=== PATIENT | male | born 1935 | race Caucasian/White ===

== ENCOUNTER 2017-11-01 09:43 | Emergency (ER) | payer OTHER ==
[~2017-11-01] VITALS: Ht 182.9 cm; Wt 77.1 kg
[~2017-11-01 09:43] MED LIST: ANTIVERT25 MG PO; ASPIR 8181 MG PO; ASPIRIN325 PO; BETIMOL15 ML OPHTHALMIC; CENTRUM SILVER1 EAC4 PO; COMBIGAN EYE DR10 ML OPHTHALMIC; ELIQUIS2.5 MG PO; FLECAINIDE ACET50 M1 PO; FLEXERIL PO; HYDROCODON-ACE1 EAC7 PO; HYDROCODONE-AP1 EAC6; HYZAAR 100-251 EACH PO; LIPITOR10 MG PO; LOPRESSOR25 PO; LUMIGAN2.5 M1 OPHTHALMIC; NORCO 5-325 TA1 EACH PO; OCUVITE TABLET1 EAC1 PO; [UNRECOGNIZED DRUG - OTHER] PO; [UNRECOGNIZED DRUG - OTHER] PO
[2017-11-01 09:51] VITALS: BP 137/71
[2017-11-01] MEDS ORDERED: TRIAMCINOLONE A80 G2 TOP (10:11)
[2017-11-01] MEDS ORDERED: TERBINAFINE HCL30 GM TP (10:14)
== END 2017-11-01 10:20 | disposition home or self-care (01) ==
LOC: M.ERS 09:43
DX: R21 Rash and other nonspecific skin eruption (principal); M19.90 Unspecified osteoarthritis, unspecified site; I12.9 Hypertensive chronic kidney disease with stage 1 through stage 4 chronic kidney disease, or unspecified chronic kidney disease; N18.3 Chronic kidney disease, stage 3 (moderate); I48.91 Unspecified atrial fibrillation; I21.9 Acute myocardial infarction, unspecified; Z88.8 Allergy status to other drugs, medicaments and biological substances

== ENCOUNTER → 2018-04-20 | Outpatient (CLI) | payer OTHER ==
[~2018-04-20] MED LIST changes: +TERBINAFINE HCL30 GM TP; +TRIAMCINOLONE A80 G2 TOP
[2018-04-20 17:08] LABS: CREATININE 1.8 mg/dL (0.6-1.3); POTASSIUM 4.1 mmol/L (3.5-5.1)
== END ==
LOC: M.LAB 16:38
PROVIDERS: Internal Medicine
DX: N18.3 Chronic kidney disease, stage 3 (moderate) (principal); I48.91 Unspecified atrial fibrillation

== ENCOUNTER → 2018-04-21 | Outpatient (CLI) | payer OTHER | LOC: M.ULTRA 10:17 | DX: N28.1 Cyst of kidney, acquired (principal) ==

== ENCOUNTER → 2018-08-07 | Outpatient (CLI) | payer OTHER ==
[2018-08-07 15:46] LABS: ABSOLUTE EOSINOPHILS 0.2 thou/uL (0.0-0.7); ABSOLUTE LYMPHOCYTES 1.4 thou/uL (0.8-5.3); ABSOLUTE MONOCYTES 0.5 thou/uL (0.0-1.2); ABSOLUTE NEUTROPHILS 3.3 thou/uL (1.6-8.1); BASOPHILS 0.9 %; EOSINOPHILS 4.4 %; HEMATOCRIT 37.1 % (42.0-52.0); HEMOGLOBIN 12.5 gm/dL (14.0-18.0); LYMPHOCYTES 25.7 %; MCH 30.5 pg (26.0-34.0); MCHC 33.6 g/dL (28.0-37.0); MCV 90.8 fL (80.0-100.0); MONOCYTES 9.1 %; MPV 7.5 fl. (7.2-11.1); NUCLEATED RBCS 0 /100WBC; PLATELET COUNT* 225 thou/uL (150-400); POLYS 59.9 %; RBC 4.09 mil/uL (4.50-6.00); RDW-CV 14.4 % (10.5-14.5); WBC 5.5 thou/uL (4.0-11.0)
[2018-08-07 15:59] LABS: CALCIUM 8.7 mg/dL (8.5-10.1); MAGNESIUM 1.8 mg/dL (1.8-2.4); PHOSPHORUS* 3.4 mg/dL (2.5-4.9); POTASSIUM 3.9 mmol/L (3.5-5.1)
[2018-08-07 17:13] LABS: URINE BILIRUBIN NEGATIVE (Negative); URINE BLOOD TRACE (Negative); URINE CLARITY CLEAR; URINE COLOR YELLOW; URINE GLUCOSE-RANDOM NEGATIVE (Negative); URINE KETONES NEGATIVE (Negative); URINE LEUKOCYTES-REFLEX NEGATIVE (Negative); URINE NITRITE-REFLEX NEGATIVE (Negative); URINE PROTEIN NEGATIVE (Negative); URINE SPECIFIC GRAVITY 1.025 (1.005-1.030); URINE UROBILINOGEN 0.2 E.U./dl (0.2-1.0)
[2018-08-07 23:09] LABS: eGFR IF AFRICAN AMERICAN 35 (>59)
[2018-08-08 14:11] LABS: PARATHYROID HORMONE 75 pg/mL (15-65)
== END ==
LOC: M.LAB 15:22
PROVIDERS: Internal Medicine
DX: I12.9 Hypertensive chronic kidney disease with stage 1 through stage 4 chronic kidney disease, or unspecified chronic kidney disease (principal); N18.3 Chronic kidney disease, stage 3 (moderate); M19.90 Unspecified osteoarthritis, unspecified site; I48.91 Unspecified atrial fibrillation; I21.9 Acute myocardial infarction, unspecified

== ENCOUNTER 2018-09-14 13:22 | Inpatient (IN) | payer MEDICARE ==
[~2018-09-14] VITALS: Ht 182.9 cm; Wt 82.0 kg
[2018-09-14 13:26] VITALS: BP 113/85
[2018-09-14] MEDS ORDERED: PRESERVISION A1 EAC2 PO (13:34)
[2018-09-14 14:02] LABS: ABSOLUTE BASOPHILS 0.1 thou/uL (0.0-0.2); ABSOLUTE EOSINOPHILS 0.4 thou/uL (0.0-0.7); ABSOLUTE LYMPHOCYTES 1.5 thou/uL (0.8-5.3); ABSOLUTE MONOCYTES 0.6 thou/uL (0.0-1.2); ABSOLUTE NEUTROPHILS 5.2 thou/uL (1.6-8.1); BASOPHILS 0.8 %; EOSINOPHILS 5.1 %; HEMATOCRIT 35.1 % (42.0-52.0); LYMPHOCYTES 18.7 %; MCH 30.9 pg (26.0-34.0); MCHC 34.1 g/dL (28.0-37.0); MCV 90.7 fL (80.0-100.0); MONOCYTES 8.2 %; MPV 7.5 fl. (7.2-11.1); NUCLEATED RBCS 0 /100WBC; PLATELET COUNT* 250 thou/uL (150-400); POLYS 67.2 %; RBC 3.87 mil/uL (4.50-6.00); WBC 7.8 thou/uL (4.0-11.0)
[2018-09-14 14:04] LABS: BE -0.9 mmol/L (-2 to +3); HCO3 23.4 mmol/L (22.0-26.0); PCO2 37.3 mmHg (35.0-45.0); PO2 82.1 mmHg (75.0-100.0); pH 7.415 (7.340-7.450)
[2018-09-14 14:08] LABS: INR 1.1; PROTIME 11.4 Seconds (9.20-11.50)
[2018-09-14 14:21] LABS: ALBUMIN 3.1 g/dL (3.4-5.0); CALCIUM 8.9 mg/dL (8.5-10.1); CREATININE 2.4 mg/dL (0.6-1.3); MAGNESIUM 1.8 mg/dL (1.8-2.4); POTASSIUM 3.7 mmol/L (3.5-5.1); TOTAL BILIRUBIN 0.5 mg/dL (<0.1-1.0); TOTAL PROTEIN 7.2 g/dL (6.4-8.2)
[2018-09-14 14:30] LABS: INFLUENZA A ANTIGEN None Detected (None Detect); INFLUENZA B ANTIGEN None Detected (None Detect)
[2018-09-14 16:32] VITALS: BP 97/44
--- NOTE | 2018-09-14 17:55 | NUR ---
PT TO UNIT AT APPROX 1700 FROM ER, DAUGHTER AT BEDSIDE. PT IS ALERT AND ORIENTED, SOME SLURRING FROM PREVIOUS CVA (DAUGHTER CONFIRMED THIS IS PT BASELINE SPEECH). TELE TRACKING NSR AND ALL VSS ON ROOM AIR. PT DENIES CP AND WORSENING SOA. EDUCATED ON SAFETY AND PLAN OF CARE. PLEASE SEE ASSESSMENT FOR ADDITIONAL INFORMATION. WILL CONTINUE TO MONITOR
[2018-09-14 20:00] VITALS: BP 95/47
[2018-09-15] VITALS (7 sets, daily range): BP systolic 89–168; BP diastolic 38–70
--- NOTE | 2018-09-15 06:12 | NUR ---
ASSUMED PT CARE AT 1930, PT IS A&OX4, PT IS TRACING NSR WITH A 1DAVB ON THE MONITOR, ON RA SATTING MID TO HIGH 90'S. PT DENIES ANY PAIN OR NEEDS ALTAGRACIA THIS TIME. PT SLEPT WELL MOST OF THE NIGHT. PT IS UP WITH PERSONAL WALKER TO THE BR. PT APPEARS TO HAVE WHAT LOOKS LIKE RINGWORM TO RIGHT HIP, THIS WILL BE PASSED ALONG TO DAY RN AND PHYSICIAN. BED IN LOW POSITION, CALL LIGHT IN REACH, BED ALARM ON, YELLOW ARM BAND AND SOCKS IN PLACE.
--- NOTE | 2018-09-15 10:49 | EKG ---
[place] [address] ELECTROCARDIOGRAM REPORT Name: MANUELA BOWEN Room: [address] ADM IN .R.#: [id number] Admission: 09/14/18 Attend Phys: Alma Bond Discharge: Date of : 34 Report #: [id number] THIS REPORT FOR: //name// [facility] ED Test Date: 2018-09-14 Test Time: 13:36:56 Pat Name: MANUELA BOWEN Department: Room: [facility] Gender: M Geochemist: : 1935 Requested By: Ethel Brooke Order Number: [id number] MD: Sriram Allen Measurements Intervals [place] Rate: 77 P: 72 SD: 231 QRS: -56 QRSD: 142 T: 86 QT: 409 QTc: 463 Interpretive Statements Sinus rhythm Prolonged SD interval Nonspecific IVCD with LAD Compared to ECG 01/10/2017 20:27:01 First degree AV block now present Intraventricular conduction delay more prominent Electronically Signed On 09-15-2018 10:49:02 GAUGER CHIEF DELIVERY by Sriram Allen [email or web address] <ELECTRONICALLY SIGNED> By: Sriram Allen MD, FAC 09/15/18 1049 1336 1336 Sriram Allen MD, [facility] /EPI
--- NOTE | 2018-09-15 11:54 | NUR ---
MET WITH PT AND DTR/GABI BINGHAM TO DISCUSS HOME SITUATION/DC PLANNING. PT LIVES WITH SON/JULIA. PT IS INDEPENDENT WITH ADLS, ABLE TO MAKE SIMPLE MEALS WHILE SON WORKS DURING THE DAY. PT USES WALKER. HAS HAD HH IN PAST AND BEEN TO SNF AT [facility]. PT DOESN'T ANTICIPATE ANY DC NEEDS AT THIS TIME. DTR DID VOICE CONCERNS ABOUT PT NOT GETTING HIS 'REGULAR' MEDICATIONS SINCE ADMIT. SERGIO KIM AWARE AND IS CONTACTING DR. PEREZ ASKED TO SEE CHARGE NURSE ALSO, SERGIO MCHUGHMARINE STRUCTURAL WELDER NURSE MADE AWARE
[2018-09-15 22:38] LABS: URINE BILIRUBIN NEGATIVE (Negative); URINE BLOOD NEGATIVE (Negative); URINE CLARITY CLEAR; URINE COLOR YELLOW; URINE GLUCOSE-RANDOM NEGATIVE (Negative); URINE KETONES NEGATIVE (Negative); URINE LEUKOCYTES-REFLEX NEGATIVE (Negative); URINE NITRITE-REFLEX NEGATIVE (Negative); URINE PROTEIN NEGATIVE (Negative); URINE SPECIFIC GRAVITY 1.015 (1.005-1.030); URINE UROBILINOGEN 0.2 E.U./dl (0.2-1.0)
[2018-09-16 04:30] VITALS: BP 123/57
--- NOTE | 2018-09-16 05:28 | NUR ---
ASSUMED PT CARE AT 1930, PT IS A&OX4, PT IS MELLO FOSS WITH A 1DAVB ON THE MONTIOR, ON RA SATTING MID TO HIGH 90'S PT IS UP WITH A WALKER TOT HE BR. PT APPEARS TO HAVE RING WORM TO RIGHT HIP. BED IN LOW POSITION, CALL LIGHT IN REACH, BED ALARM ON, YELLOW ARM BAND AND SOCKS IN PLACE. HOURLY ROUNDING COMPLETED FOR PT SAFETY.
[2018-09-16 08:00] VITALS: BP 142/61
[2018-09-16 12:00] VITALS: BP 129/68
[2018-09-16 16:00] VITALS: BP 103/51
--- NOTE | 2018-09-16 17:41 | NUR ---
PT UP IN ROOM WITH SB ASSIST AND WALKER. PT DENIES SOA. NSR ON MONITOR
[2018-09-16 20:30] VITALS: BP 146/93
[2018-09-17] VITALS: BP 107/40
[2018-09-17 04:00] VITALS: BP 120/63
--- NOTE | 2018-09-17 04:53 | NUR ---
PT CARE ASSUMED AT 1930. SAT MAINTAINED IN RA. CALL LIGHT WITHIN REACH AND BED IN LOW POSITION. DENIES SOB AND PAIN. SLEPT MOST OF THE NIGHT. ALERT AND ORIENTED X4. HOURLY ROUNDING DONE FOR PT SAFETY.
[2018-09-17 08:30] VITALS: BP 122/55
[2018-09-17] MEDS ORDERED: AUGMENTIN 875-1 EACH PO (11:46)
[2018-09-17 13:20] VITALS: BP 122/55
[2018-09-17] MEDS ORDERED: PREDNISONE 10 M10 MG PO ×2 (13:23→13:30)
--- NOTE | 2018-09-17 14:37 | NUR ---
ASSUMED PT CARE AT 0730, FULL ASSESMENT DONE CHARTED. PT A/O X4, DENIES PAIN, PT STATES "I FEEL BETTER TODAY", NO COUGH NOTED. PTS VSS, SB/PAC'S ON THE MONITOR. PT REPORTS BM LAST NIGHT, UP AD WILVER, USES CALL LIGHT APPROPRILATY, VOIDING PER URINAL. RECIEVED DISCHARGE ORDERS AND SCRIPTS, CALLED SON(JULIA) WITH UPDATE. PT DISCHARGED WITH BELONGINGS AND QUESTIONS ANSWERED AT APPROX 1415
== END 2018-09-17 14:04 | disposition home or self-care (01) | DRG 682 ==
LOC: M.ERS 13:22 → M.TBA-ER 15:49 → M.2W 15:49
PROVIDERS: Personal Emergency Response Attendant; ADMIT Internal Medicine
DX: N17.9 Acute kidney failure, unspecified (principal); J80 Acute respiratory distress syndrome; I10 Essential (primary) hypertension; I48.91 Unspecified atrial fibrillation; B35.4 Tinea corporis; N18.4 Chronic kidney disease, stage 4 (severe); M19.90 Unspecified osteoarthritis, unspecified site; I25.2 Old myocardial infarction; Z86.73 Personal history of transient ischemic attack (TIA), and cerebral infarction without residual deficits; Z94.89 Other transplanted organ and tissue status; Z88.8 Allergy status to other drugs, medicaments and biological substances; Z82.49 Family history of ischemic heart disease and other diseases of the circulatory system; Z23 Encounter for immunization; Z79.899 Other long term (current) drug therapy

== ENCOUNTER → 2018-12-09 | Outpatient (CLI) | payer MEDICARE, BC ==
[~2018-12-09] MED LIST changes: +AUGMENTIN 875-1 EACH PO; +PREDNISONE 10 M10 MG PO; +PRESERVISION A1 EAC2 PO
[2018-12-09 13:43] LABS: ABSOLUTE BASOPHILS 0.1 thou/uL (0.0-0.2); ABSOLUTE EOSINOPHILS 0.4 thou/uL (0.0-0.7); ABSOLUTE MONOCYTES 0.7 thou/uL (0.0-1.2); EOSINOPHILS 5.3 %; HEMATOCRIT 37.2 % (42.0-52.0); HEMOGLOBIN 12.5 gm/dL (14.0-18.0); MCH 30.3 pg (26.0-34.0); MCHC 33.6 g/dL (28.0-37.0); MCV 90.2 fL (80.0-100.0); MONOCYTES 9.5 %; MPV 7.6 fl. (7.2-11.1); NUCLEATED RBCS 0 /100WBC; PLATELET COUNT* 254 thou/uL (150-400); POLYS 42.2 %; RBC 4.12 mil/uL (4.50-6.00); RDW-CV 15.3 % (10.5-14.5); WBC 7.1 thou/uL (4.0-11.0)
[2018-12-09 13:46] LABS: URINE BILIRUBIN NEGATIVE (Negative); URINE BLOOD NEGATIVE (Negative); URINE CLARITY CLEAR; URINE COLOR YELLOW; URINE GLUCOSE-RANDOM NEGATIVE (Negative); URINE KETONES NEGATIVE (Negative); URINE LEUKOCYTES-REFLEX NEGATIVE (Negative); URINE NITRITE-REFLEX NEGATIVE (Negative); URINE PROTEIN NEGATIVE (Negative); URINE SPECIFIC GRAVITY 1.025 (1.005-1.030); URINE UROBILINOGEN 0.2 E.U./dl (0.2-1.0)
[2018-12-09 13:56] LABS: CALCIUM 9.7 mg/dL (8.5-10.1); CREATININE 2.1 mg/dL (0.6-1.3); MAGNESIUM 1.8 mg/dL (1.8-2.4); PHOSPHORUS* 4.2 mg/dL (2.5-4.9); POTASSIUM 3.6 mmol/L (3.5-5.1)
== END ==
LOC: M.LAB 13:08
PROVIDERS: Nurse Practitioner Family
DX: I12.9 Hypertensive chronic kidney disease with stage 1 through stage 4 chronic kidney disease, or unspecified chronic kidney disease (principal); N18.3 Chronic kidney disease, stage 3 (moderate); I48.91 Unspecified atrial fibrillation

== ENCOUNTER → 2019-05-21 | Outpatient (CLI) | payer MEDICARE, BC ==
[2019-05-21 14:32] LABS: HEMATOCRIT 39.3 % (42.0-52.0); HEMOGLOBIN 13.5 gm/dL (14.0-18.0)
[2019-05-21 14:51] LABS: ALBUMIN 3.8 g/dL (3.4-5.0); CALCIUM 8.8 mg/dL (8.5-10.1); PHOSPHORUS* 3.9 mg/dL (2.5-4.9); TOTAL BILIRUBIN 0.4 mg/dL (<0.1-1.0); TOTAL PROTEIN 7.4 g/dL (6.4-8.2)
[2019-05-21 15:01] LABS: CALCIUM 8.8 mg/dL (8.5-10.1); PHOSPHORUS* 4.1 mg/dL (2.5-4.9)
== END ==
LOC: M.LAB 14:07
PROVIDERS: Internal Medicine
DX: N18.3 Chronic kidney disease, stage 3 (moderate) (principal)

== ENCOUNTER 2019-08-16 14:01 | Inpatient (IN) | payer MEDICARE, BC ==
[~2019-08-16] VITALS: Ht 182.9 cm; Wt 82.6 kg
--- NOTE | ~2019-08-16 | PROC ---
[address] [address] PROCEDURE REPORT Name: MANUELA BOWEN Room: [address] IN M.R.#: [id number] Admission: 08/16/19 Attend Phys: Jennifer bailey Bailey Discharge: 08/23/19 Date of : 34 Report #: [id number] THIS REPORT FOR: //name// For GI report, please see the Provation report in Perceptive 7 content. By: 0656Medical Records Staff EDSON /ELOISA
[2019-08-16 14:12] VITALS: BP 110/52
[2019-08-16 15:03] LABS: ABSOLUTE LYMPHOCYTES 1.1 thou/uL (0.8-5.3); ABSOLUTE MONOCYTES 0.6 thou/uL (0.0-1.2); ABSOLUTE NEUTROPHILS 7.4 thou/uL (1.6-8.1); BASOPHILS 0.3 %; EOSINOPHILS 0.5 %; HEMATOCRIT 41.6 % (42.0-52.0); HEMOGLOBIN 14.1 gm/dL (14.0-18.0); LYMPHOCYTES 12.1 %; MCH 30.4 pg (26.0-34.0); MCHC 33.9 g/dL (28.0-37.0); MCV 89.7 fL (80.0-100.0); MONOCYTES 6.7 %; MPV 7.5 fl. (7.2-11.1); NUCLEATED RBCS 0 /100WBC; PLATELET COUNT* 318 thou/uL (150-400); POLYS 80.4 %; RBC 4.64 mil/uL (4.50-6.00); RDW-CV 14.4 % (10.5-14.5); WBC 9.2 thou/uL (4.0-11.0)
[2019-08-16 15:19] LABS: INR 1.1
[2019-08-16 15:20] LABS: CALCIUM 9.5 mg/dL (8.5-10.1); CREATININE 3.1 mg/dL (0.6-1.3); POTASSIUM 4.3 mmol/L (3.5-5.1)
[2019-08-16 15:31] LABS: ALBUMIN 3.8 g/dL (3.4-5.0); TOTAL BILIRUBIN 0.5 mg/dL (<0.1-1.0)
[2019-08-16 19:46] VITALS: BP 95/83
[2019-08-16 20:00] VITALS: BP 98/42
[2019-08-16 22:30] VITALS: BP 112/50
[2019-08-17] VITALS (8 sets, daily range): BP systolic 90–118; BP diastolic 52–74
[2019-08-17 00:01] LABS: URINE BILIRUBIN NEGATIVE (Negative); URINE BLOOD NEGATIVE (Negative); URINE CLARITY CLEAR; URINE COLOR YELLOW; URINE GLUCOSE-RANDOM NEGATIVE (Negative); URINE KETONES NEGATIVE (Negative); URINE LEUKOCYTES-REFLEX NEGATIVE (Negative); URINE PROTEIN NEGATIVE (Negative); URINE SPECIFIC GRAVITY 1.015 (1.005-1.030); URINE UROBILINOGEN 0.2 E.U./dl (0.2-1.0)
[2019-08-17 00:06] LABS: URINE NITRITE-REFLEX POSITIVE (Negative)
[2019-08-17 00:19] LABS: BACTERIA-REFLEX 1-9 Few /HPF (None Seen); CRYSTALS None Seen /LPF (None Seen); HYALINE CASTS 0-3 Few /LPF (None Seen); MUCUS 4-6 Moderate strn/LPF (None Seen); SQUAMOUS 0-3 Few /LPF (0-3); URINE RBC 3-10 Few /HPF (0-2); URINE WBC-REFLEX None Seen /HPF (0-5)
[2019-08-17 05:06] LABS: HEMATOCRIT 32.6 % (42.0-52.0); MCH 30.2 pg (26.0-34.0); MCHC 33.7 g/dL (28.0-37.0); MCV 89.6 fL (80.0-100.0); MPV 7.4 fl. (7.2-11.1); RBC 3.64 mil/uL (4.50-6.00); RDW-CV 14.2 % (10.5-14.5); WBC 6.5 thou/uL (4.0-11.0)
[2019-08-17 05:15] LABS: CALCIUM 8.5 mg/dL (8.5-10.1); CREATININE 2.7 mg/dL (0.6-1.3); POTASSIUM 4.5 mmol/L (3.5-5.1)
--- NOTE | 2019-08-17 06:27 | NUR ---
RECEIVED REPORT FROM FLOOR COVERINGS SALESPERSONSERGIO NO AT 1935. PT ARRIVED TO UNIT VIA BED AT 1954. PT ALERT AND ORIENTED TO ROOM AND CALL LIGHT. SUPERVISOR METAL CANS IN PLACE, TRACING AFIB. PT DENIES PAIN AND VOICES NO CONCERNS THIS SHIFT. HIGH FALL PRECAUTIONS IN PLACE, CALL LIGHT WITHIN REACH.
--- NOTE | 2019-08-17 10:23 | EKG ---
[place] [address] ELECTROCARDIOGRAM REPORT Name: MANUELA BOWEN Room: [address] ADM IN M.R.#: [id number] Admission: 08/16/19 Attend Phys: Jennifer Landon Discharge: Date of : 34 Report #: [id number] THIS REPORT FOR: //name// [facility] ED Test Date: 2019-08-16 Test Time: 14:20:09 Pat Name: MANUELA BOWEN Department: Room: [facility] Gender: M Compliance Examiner: LUGO : 1935 Requested By: Bert Garza Order Number: [id number] MD: Gopal Bishop Measurements Intervals [place] Rate: 94 P: RI: QRS: -64 QRSD: 135 T: 78 QT: 390 QTc: 488 Interpretive Statements Atrial tachycardia left axis Left bundle branch block Compared to ECG 09/14/2018 13:36:56 Sinus rhythm no longer present Electronically Signed On 08-17-2019 10:23:00 GAMMA RAY OPERATOR by Gopal Bishop [email or web address] <ELECTRONICALLY SIGNED> By: Gopal Bishop MD, [facility] 08/17/19 1023 1420 1420 Gopal Bishop MD, [facility] /EPI
--- NOTE | 2019-08-17 12:35 | 2DMMODE ---
[place] [address] 2 D/M-MODE ECHOCARDIOGRAM Name: MANUELA BOWEN Room: [address] IN [facility]#: [id number] Admission: 08/16/19 Attend Phys: Jennifer bailey Sa Discharge: Date of : 34 Date of Service: 08/17/19 1235 Report #: [id number] THIS REPORT FOR: //name// APPROVED REPORT Study performed: 08/17/2019 09:59:38 EXAM: Comprehensive 2D, Doppler, and color-flow Echocardiogram Patient Location: In-Patient Room #: [facility] Status: routine BSA: 2.01 HR: 81 bpm BP: 98/74 mmHg Rhythm: Atrial Fibrillation Other Information Study Quality: Good Indications Atrial Fibrillation Dyspnea 2D Dimensions IVSd: 10.83 (7-11mm) LVOT Diam: 20.99 (18-24mm) LVDd: 39.74 mm PWd: 10.41 (7-11mm) Ascending Ao: 35.44 (22-36mm) LVDs: 29.36 (25-40mm) Aortic Root: 35.33 mm Volumes Left Atrial Volume (Systole) LA ESV Index: 33.10 mL/m2 Aortic Valve AoV Peak Hugo.: 1.20 m/s AO Peak Gr.: 5.80 mmHg LVOT Max P.54 mmHg AO Mean Gr.: 3.26 mmHg LVOT Mean P.86 mmHg LVOT Max V: 1.18 m/s AO V2 VTI: 18.33 cm LVOT Mean V: 0.78 m/s BELKIS (VTI): 3.49 cm2 LVOT V1 VTI: 18.47 cm AI Henderson: 1.15 m/s2 AI PHT: 818.45 [place] [address] 2 D/M-MODE ECHOCARDIOGRAM Name: MANUELA BOWEN Room: [address] IN ..#: [id number] Admission: 08/16/19 Attend Phys: Jennifer bailey Sa Discharge: Date of : 34 Date of Service: 08/17/19 1235 Report #: [id number] MV Decel. Time: 141.68 ms MV PHT: 41.09 ms MVA (PHT): 5.35 cm2 TDI Medial E' Hugo.: 0.11 m/s Lateral E' Hugo.: 0.13 m/s Pulmonary Valve PV Peak Hugo.: 1.05 m/s PV Peak Gr.: 4.39 mmHg Tricuspid Valve RAP Estimate: 5.00 mmHg TR Peak Gr.: 25.11 mmHg RVSP: 30.00 mmHg PA Pressure: 30.00 mmHg Left Ventricle The left ventricle is normal size. There is normal LV segmental wall motion. There is normal left ventricular wall thickness. Left ventricular systolic function is normal. The left ventricular ejection fraction is within the normal range. LVEF is 55-60%. This study is not technically sufficient to allow evaluation of the LV diastolic function. Right Ventricle The right ventricle is normal size. The right ventricular systolic function is normal. Atria Left atrium is mildly dilated. The right atrium size is normal. Aortic Valve The aortic valve is normal in structure. Trace aortic regurgitation. There is no aortic valvular stenosis. Mitral Valve The mitral valve is normal in structure. Trace mitral regurgitation. No evidence of mitral valve stenosis. Tricuspid Valve The tricuspid valve is normal in structure. Mild tricuspid regurgitation. estimated pa pressure 35 mm Hg Pulmonic Valve The pulmonary valve is normal in structure. [place] [address] 2 D/M-MODE ECHOCARDIOGRAM Name: BOWENMANUELA EPI Room: [address] IN [facility]#: [id number] Admission: 08/16/19 Attend Phys: Jennifer bailey Sa Discharge: Date of : 34 Date of Service: 08/17/19 1235 Report #: [id number] valvular regurgitation. Great Vessels The aortic root is normal in size. IVC is normal in size and collapses >50% with inspiration. Pericardium There is no pericardial effusion. <Conclusion> LVEF is 55-60%. Left atrium is mildly dilated. <ELECTRONICALLY SIGNED> By: Gopal Bishop MD, FACC 08/17/19 1235 1235 1235 Gopal Bishop MD, FACC /INF
--- NOTE | 2019-08-17 14:48 | NUR ---
ISOLATION CAN BE DISCONTINUED PER JOSAFAT I/D RN.
--- NOTE | 2019-08-17 15:27 | NUR ---
Pt is A&O. Resides at home with his son. Independent. Pt has a walker and cane that she can use for mobility. Hx of . Hx of SNF at [facility]. Goal is home at in, no needs anticipated.
[2019-08-18] VITALS: BP 108/88
[2019-08-18 04:00] VITALS: BP 131/69
[2019-08-18 08:00] VITALS: BP 120/91
[2019-08-18 10:30] LABS: ABSOLUTE BASOPHILS 0.1 thou/uL (0.0-0.2); ABSOLUTE EOSINOPHILS 0.3 thou/uL (0.0-0.7); ABSOLUTE LYMPHOCYTES 1.9 thou/uL (0.8-5.3); ABSOLUTE MONOCYTES 0.5 thou/uL (0.0-1.2); ABSOLUTE NEUTROPHILS 3.5 thou/uL (1.6-8.1); BASOPHILS 0.9 %; EOSINOPHILS 4.1 %; HEMATOCRIT 36.4 % (42.0-52.0); HEMOGLOBIN 12.2 gm/dL (14.0-18.0); LYMPHOCYTES 29.8 %; MCH 30.2 pg (26.0-34.0); MCHC 33.5 g/dL (28.0-37.0); MONOCYTES 8.3 %; MPV 7.5 fl. (7.2-11.1); NUCLEATED RBCS 0 /100WBC; PLATELET COUNT* 282 thou/uL (150-400); POLYS 56.9 %; RBC 4.04 mil/uL (4.50-6.00); RDW-CV 14.6 % (10.5-14.5); WBC 6.2 thou/uL (4.0-11.0)
[2019-08-18 10:44] LABS: ALBUMIN 3.3 g/dL (3.4-5.0); CALCIUM 8.9 mg/dL (8.5-10.1); CREATININE 2.1 mg/dL (0.6-1.3); POTASSIUM 3.5 mmol/L (3.5-5.1); TOTAL BILIRUBIN 0.4 mg/dL (<0.1-1.0); TOTAL PROTEIN 6.9 g/dL (6.4-8.2)
[2019-08-18 11:48] VITALS: BP 155/83
[2019-08-18 16:00] VITALS: BP 103/61
[2019-08-18 20:00] VITALS: BP 112/69
--- NOTE | 2019-08-18 23:39 | NUR ---
PT A+O X4. NO PAIN REPORTED OR OBSERVED. PT HAS EXPRESSIVE APHASIA @ TIMES WHEN TRYING TO TELL A STORY- BUT SPEECH IS CLEAR WHEN ASKING FOR SOMETHING OR ANSWERING QUESTIONS. CONSISTENT WITH SPEECH OBSERVED BY THIS RN LAST M[employer] PROJECT MANAGER. CALL LIGHT IN REACH. HOURLY ROUNDING FOR SAFETY.
[2019-08-19] VITALS: BP 107/63
[2019-08-19 04:00] VITALS: BP 100/75
[2019-08-19 08:00] VITALS: BP 113/71
[2019-08-19 09:32] LABS: ALBUMIN 2.8 g/dL (3.4-5.0); CALCIUM 8.2 mg/dL (8.5-10.1); CREATININE 1.7 mg/dL (0.6-1.3); POTASSIUM 3.2 mmol/L (3.5-5.1); TOTAL BILIRUBIN 0.3 mg/dL (<0.1-1.0); TOTAL PROTEIN 5.7 g/dL (6.4-8.2)
[2019-08-19 09:33] LABS: ABSOLUTE BASOPHILS 0.1 thou/uL (0.0-0.2); ABSOLUTE EOSINOPHILS 0.3 thou/uL (0.0-0.7); ABSOLUTE LYMPHOCYTES 1.8 thou/uL (0.8-5.3); ABSOLUTE NEUTROPHILS 5.1 thou/uL (1.6-8.1); BASOPHILS 0.6 %; EOSINOPHILS 3.2 %; LYMPHOCYTES 22.4 %; MCH 30.2 pg (26.0-34.0); MCHC 33.8 g/dL (28.0-37.0); MCV 89.3 fL (80.0-100.0); MPV 7.7 fl. (7.2-11.1); NUCLEATED RBCS 0 /100WBC; PLATELET COUNT* 237 thou/uL (150-400); POLYS 61.8 %; RBC 3.35 mil/uL (4.50-6.00); RDW-CV 13.9 % (10.5-14.5); WBC 8.2 thou/uL (4.0-11.0)
[2019-08-19 09:34] LABS: HEMOGLOBIN 10.1 gm/dL (14.0-18.0)
[2019-08-19 12:03] VITALS: BP 130/68
[2019-08-19 20:10] VITALS: BP 120/83
[2019-08-20] VITALS (7 sets, daily range): BP systolic 105–137; BP diastolic 51–75
--- NOTE | 2019-08-20 05:39 | NUR ---
PATIENT PREPRARED FOR COLONOSCOPY. NPO POST MIDNIGHT. BOWEL IS CLEAR. PATIENT DENIES PAIN AND DISCOMFORT. CALL LIGHT WITHIN REACH
[2019-08-20 09:46] LABS: ABSOLUTE BASOPHILS 0.1 thou/uL (0.0-0.2); ABSOLUTE EOSINOPHILS 0.2 thou/uL (0.0-0.7); ABSOLUTE LYMPHOCYTES 1.4 thou/uL (0.8-5.3); ABSOLUTE MONOCYTES 1.1 thou/uL (0.0-1.2); ABSOLUTE NEUTROPHILS 6.9 thou/uL (1.6-8.1); BASOPHILS 0.9 %; EOSINOPHILS 1.8 %; HEMATOCRIT 29.7 % (42.0-52.0); HEMOGLOBIN 10.2 gm/dL (14.0-18.0); LYMPHOCYTES 14.6 %; MCH 30.4 pg (26.0-34.0); MCHC 34.3 g/dL (28.0-37.0); MCV 88.7 fL (80.0-100.0); MPV 7.7 fl. (7.2-11.1); NUCLEATED RBCS 0 /100WBC; PLATELET COUNT* 247 thou/uL (150-400); POLYS 71.7 %; RBC 3.35 mil/uL (4.50-6.00); RDW-CV 14.2 % (10.5-14.5); WBC 9.6 thou/uL (4.0-11.0)
[2019-08-20 09:55] LABS: CALCIUM 8.4 mg/dL (8.5-10.1); CREATININE 1.6 mg/dL (0.6-1.3); TOTAL BILIRUBIN 0.3 mg/dL (<0.1-1.0); TOTAL PROTEIN 5.6 g/dL (6.4-8.2)
--- NOTE | 2019-08-20 11:15 | NUR ---
ASSUMED CARE OF PATIENT THIS AM AT 0730. PATIENT IS ALERT AND ORIENTED X 4. HE DENIES PAIN. PATIENT KEPT NPO FOR COLONOSCOPY. PATIENT TAKEN TO PACU FOR TEST PER W/C.
[2019-08-21] VITALS: BP 120/62
[2019-08-21 04:00] VITALS: BP 108/63
[2019-08-21 08:00] VITALS: BP 100/48
[2019-08-21 12:49] VITALS: BP 105/83
--- NOTE | 2019-08-21 13:41 | NUR ---
Spoke with , continue to follow. Pt will likely need HH at ma. Following.
[2019-08-21 16:00] VITALS: BP 148/62
[2019-08-21 18:00] LABS: URINE BILIRUBIN NEGATIVE (Negative); URINE BLOOD NEGATIVE (Negative); URINE CLARITY CLEAR; URINE COLOR YELLOW; URINE GLUCOSE-RANDOM NEGATIVE (Negative); URINE KETONES TRACE (Negative); URINE LEUKOCYTES-REFLEX NEGATIVE (Negative); URINE NITRITE-REFLEX NEGATIVE (Negative); URINE PROTEIN NEGATIVE (Negative); URINE SPECIFIC GRAVITY >= 1.030 (1.005-1.030); URINE UROBILINOGEN 0.2 E.U./dl (0.2-1.0)
--- NOTE | 2019-08-21 19:21 | NUR ---
PATINET RESTING IN BED UP WITH ASSIST X2 AND WALKER. HE IS CURRENTLY FEBRILE AND ORDERS WERE RECEIVED FOR TYLENOL TO CONTROL FEVER. HOURLY ROUNDING COMPLETED FOR PATINET SAFETY.
[2019-08-21 19:50] VITALS: BP 120/64
[2019-08-22] VITALS: BP 87/46
[2019-08-22 04:00] VITALS: BP 103/50; BP 142/93
[2019-08-22 04:35] LABS: ABSOLUTE BASOPHILS 0.1 thou/uL (0.0-0.2); ABSOLUTE EOSINOPHILS 0.1 thou/uL (0.0-0.7); ABSOLUTE LYMPHOCYTES 1.9 thou/uL (0.8-5.3); ABSOLUTE MONOCYTES 1.4 thou/uL (0.0-1.2); ABSOLUTE NEUTROPHILS 7.2 thou/uL (1.6-8.1); BASOPHILS 0.6 %; EOSINOPHILS 0.7 %; HEMATOCRIT 26.2 % (42.0-52.0); HEMOGLOBIN 9.4 gm/dL (14.0-18.0); LYMPHOCYTES 17.5 %; MCH 31.2 pg (26.0-34.0); MCHC 35.8 g/dL (28.0-37.0); MCV 87.2 fL (80.0-100.0); MONOCYTES 13.5 %; MPV 7.3 fl. (7.2-11.1); NUCLEATED RBCS 0 /100WBC; PLATELET COUNT* 211 thou/uL (150-400); POLYS 67.7 %; WBC 10.7 thou/uL (4.0-11.0)
[2019-08-22 04:39] LABS: CALCIUM 7.6 mg/dL (8.5-10.1); CREATININE 1.7 mg/dL (0.6-1.3); MAGNESIUM 1.5 mg/dL (1.8-2.4); POTASSIUM 3.1 mmol/L (3.5-5.1)
--- NOTE | 2019-08-22 06:39 | NUR ---
VSS. SEE MAR. SEE CHARTING. FALL PRECAUTIONS IN PLACE. HOURLY ROUNDING FOR SAFETY.
[2019-08-22 08:00] VITALS: BP 105/54
[2019-08-22 11:43] VITALS: BP 106/67
--- NOTE | 2019-08-22 14:15 | NUR ---
Spoke with Pt regarding skilled, d/t continued weakness, Pt in agreement and wants to go to [facility]. CM updated Mere at [facility], they will have a bed available on Tuesday. Faxed referral, awaiting decision to accept.
--- NOTE | 2019-08-22 15:07 | PATH ---
[facility] [address] [place] [address] PATHOLOGY RPT PROCEDURE Name: BOWENMARCUS EPI Room: [address] IN M.R.#: [id number] Admission: 08/16/19 Date of : 34 Discharge: Report #: [id number] Path Case #: [id number] [facility] Accession Number: [id number] . 01 Material submitted: . colon - RANDOM COLON BIOPSIES . 01 Clinical history: . None provided . 02 Diagnosis: Random colon biopsies: - Mild active colitis with suggestion of chronic inflammation, negative for granulomas, viral inclusions and dysplasia. See comment. . (SAMIA:christopher; 08/22/2019) S 08/22/2019 1117 Local . 02 Comment: The biopsies reveal benign colonic mucosa, most showing mild active inflammation with scattered cryptitis and a few neutrophils in the lamina propria and there is focal/minimal basal lymphoplasmacytosis with crypt disarray but no definite crypt distortion. The inflammation is subtle and could be attributed to oral sodium phosphate prep, use of non-steroidal anti-inflammatory agents or acute/self-limited or infectious colitis; however, the suggestion of chronic inflammation raises the question of inflammatory bowel disease as well. . ([facility]IA:[facility]; 08/22/2019) . 02 Electronically signed: . Zane Green MD, Pathologist NPI- [id number] . 01 Gross description: . Received in formalin labeled "Marcus Bowen, random colon biopsies," are multiple segments of liao-brown soft tissue measuring 1.0 x 0.9 x 0.2 cm in aggregate dimensions and ranging from 0.2 to 0.4 cm in maximum dimension. The specimen is submitted entirely in cassette A1. ([facility]; 08/21/2019) XDC/XAR 08/21/2019 0821 Local . 02 Pathologist provided ICD-10: K52.9 . 02 CPT . 992544 Specimen Comment: A courtesy copy of this report has been sent to [phone], [place] [address] PATHOLOGY RPT PROCEDURE Name: MARCUS BOWEN Room: [address] IN ..#: [id number] Admission: 08/16/19 Date of : 34 Discharge: Report #: [id number] Path Case #: [id number] Specimen Comment: [id number], Specimen Comment: Report sent to , and Dr.DE IGGY AVILEZ Performed at: [address], [place], [place] [id number] MD Reginald Bennett MD Phone: [phone] Performed at: [facility] [address], [place], [place] [id number] MD Zane Green MD Phone: [phone]
[2019-08-22 20:00] VITALS: BP 115/65
[2019-08-23] VITALS: BP 81/47
[2019-08-23 04:50] LABS: ABSOLUTE BASOPHILS 0.1 thou/uL (0.0-0.2); ABSOLUTE EOSINOPHILS 0.2 thou/uL (0.0-0.7); ABSOLUTE LYMPHOCYTES 1.6 thou/uL (0.8-5.3); ABSOLUTE NEUTROPHILS 6.6 thou/uL (1.6-8.1); BASOPHILS 0.5 %; EOSINOPHILS 1.7 %; HEMATOCRIT 24.9 % (42.0-52.0); HEMOGLOBIN 8.8 gm/dL (14.0-18.0); LYMPHOCYTES 16.8 %; MCH 30.5 pg (26.0-34.0); MCHC 35.2 g/dL (28.0-37.0); MCV 86.7 fL (80.0-100.0); MONOCYTES 10.4 %; MPV 7.8 fl. (7.2-11.1); NUCLEATED RBCS 0 /100WBC; PLATELET COUNT* 212 thou/uL (150-400); POLYS 70.6 %; RBC 2.87 mil/uL (4.50-6.00); RDW-CV 14.3 % (10.5-14.5); WBC 9.4 thou/uL (4.0-11.0)
[2019-08-23 05:05] LABS: CALCIUM 8.3 mg/dL (8.5-10.1); CREATININE 1.7 mg/dL (0.6-1.3); POTASSIUM 4.3 mmol/L (3.5-5.1)
--- NOTE | 2019-08-23 10:44 | NUR ---
Nutrition: Pt assessed for LOS. Admitted with hypotension. Going to [facility] tomorrow. H/o stroke, HTN. RX: cipro, MVI. Regular diet. alb 3, prealb 26.9. Wt: 182#. No nutritional concerns. Low risk.
[2019-08-23 12:35] LABS: ALBUMIN 2.3 g/dL (3.4-5.0); CALCIUM 8.4 mg/dL (8.5-10.1); CREATININE 1.7 mg/dL (0.6-1.3); POTASSIUM 4.5 mmol/L (3.5-5.1); TOTAL BILIRUBIN 0.3 mg/dL (<0.1-1.0); TOTAL PROTEIN 4.9 g/dL (6.4-8.2)
[2019-08-23] MEDS ORDERED: XALATAN2.5 ML OPHTHALMIC (12:47)
[2019-08-23] MEDS ORDERED: CIPRO500 M1 PO (12:48)
[2019-08-23] MEDS ORDERED: FLAGYL500 M1 PO (12:49)
[2019-08-23] MEDS ORDERED: TYLENOL325 MG PO (12:50)
[2019-08-23] MEDS ORDERED: METRONIDAZOLE500 M4 PO (12:53)
--- NOTE | 2019-08-23 13:25 | NUR ---
Pt is discharging to [facility] today. Facility to picker and sorter load and unload and transport at 330pm. Faxed dc orders. Chart copied. Nurse report number is [id number]. Updated Pt's son of dispo.
[2019-08-23 13:46] VITALS: BP 110/67
--- NOTE | 2019-08-23 14:27 | CON ---
[address] [address] CONSULTATION Name: ANDRÉSMANUELA EPI Room: [address] ADM IN M.R.#: [id number] Admission: 08/16/19 Attend Phys: Jennifer Landon Discharge: Date of : 34 Report #: [id number] THIS REPORT FOR: //name// CC: Alex López DATE OF SERVICE: 08/18/2019 REQUESTING PHYSICIAN: Jennifer López MD REASON FOR CONSULT: Persistent diarrhea and abdominal pain. HISTORY OF PRESENT ILLNESS: This is an 83-year-old male, with history of AFib, who was seen by his PCP in the office and was told to go to hospital ass the patient almost had a near syncope episode. The patient reports that he has had diarrhea for the past 3 weeks, which has been persistent. This has been making him very dehydrated. He also has loose stools during the night and complains of excessive malodorous gas and significant bloating. Since hospitalization, the patient has had blood work, which did not show any leukocytosis. He also had C. diff stool assay, which was negative. He denies any hematochezia or melena. He also reports that since he has been hydrated. He has not had any dizziness or upper GI symptoms such as nausea and vomiting. PAST MEDICAL HISTORY: Significant for history of renal failure, AFib, Green's palsy, arthritis, hypertension, skin cancer, tonsillectomy, coronary artery disease status post [place], strokes, seizure and right eye transplant. 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 MEDICATIONS: Please refer to MAR. SOCIAL HISTORY: The patient denies tobacco or alcohol use. FAMILY HISTORY: Significant for coronary artery disease. PHYSICAL EXAMINATION: VITAL SIGNS: Reveals normal vitals. LUNGS: Clear to auscultation bilaterally. CARDIOVASCULAR: Regular rate. ABDOMEN: Soft, nontender, nondistended. Bowel sounds are positive. NEUROLOGIC: The patient is mildly hard of hearing, but otherwise alert and oriented x 3. LABORATORY DATA: Labs revealed sodium of 141, potassium 3.5, BUN is 24, creatinine 2.1. Lipase is 234. Bilirubin is 0.4, albumin is 3.3. WBC is 6.2 [place] [address] CONSULTATION Name: MANUELA BOWEN Room: [address] IN [facility].#: [id number] Admission: 08/16/19 Attend Phys: Jennifer Landon Discharge: Date of : 34 Report #: [id number] with hemoglobin of 12.2 and platelets of 282. ASSESSMENT AND PLAN: The patient's diarrhea that has been ongoing for the past 3 weeks, which made him dehydrated and had near syncopal episode. This also has strained his kidneys and appears to have acute over chronic kidney injury. He is currently tolerating diet and denies any upper GI symptoms. He continues to have diarrhea even when he is asleep. The fact that he has nocturnal diarrhea, this means that he has secretory diarrhea. He also complains of excessive malodorous gas and bloating that has been ongoing. This is highly suspicious for small intestinal bacterial overgrowth as this also may become secretory at times. I will obtain sed rate and CRP, schedule the patient for colonoscopy with random biopsy to rule out microscopic colitis. We will make further recommendation based on finding. The patient is agreeable with plan. <ELECTRONICALLY SIGNED> By: Eloisa Nevarez MD 08/23/19 1427 1341 [id number] Nevarez MD /nt
--- NOTE | 2019-08-23 17:20 | NUR ---
ORDER RECEIVED TO DISCHARGE PATIENT TO [facility] FOR CONTINUATION OF SKILLED NURSOING CARE AND REHAB. MED REC, MEDICATION EDCAUTON, STROKE EDUCATION AND NEED FOR FOLLOW UP WITH GI IN 2 WEEKS COVERED WITH PATIENT AND STATED UNDERSTOOD. IV AND TELEMETRY PACK REMOVED. PATIET TAKEN VIA WHEELCHAIR BY TRANSPORTATION COMPANY TO [facility]. REPORT CALLED. DC TIME OF 15:30.
== END 2019-08-23 15:28 | DRG 371 ==
LOC: M.ERS 14:01 → M.TBA-ER 15:39 → M.2W 15:39
PROVIDERS: Emergency Medicine; Family Medicine; Internal Medicine; ADMIT Family Medicine
PROC: 0DBM8ZX Excision of Descending Colon, Via Natural or Artificial Opening Endoscopic, Diagnostic (ICD-10-PCS; principal; 2019-08-20)
PROC: 0DBP8ZX Excision of Rectum, Via Natural or Artificial Opening Endoscopic, Diagnostic (ICD-10-PCS; principal; 2019-08-20)
PROC: 0DBN8ZX Excision of Sigmoid Colon, Via Natural or Artificial Opening Endoscopic, Diagnostic (ICD-10-PCS; principal; 2019-08-20)
PROC: 0DBL8ZX Excision of Transverse Colon, Via Natural or Artificial Opening Endoscopic, Diagnostic (ICD-10-PCS; principal; 2019-08-20)
DX: A04.9 Bacterial intestinal infection, unspecified (principal); N17.0 Acute kidney failure with tubular necrosis; K57.31 Diverticulosis of large intestine without perforation or abscess with bleeding; E87.2 Acidosis; N18.4 Chronic kidney disease, stage 4 (severe); D68.59 Other primary thrombophilia; I95.9 Hypotension, unspecified; M19.90 Unspecified osteoarthritis, unspecified site; R56.9 Unspecified convulsions; I12.9 Hypertensive chronic kidney disease with stage 1 through stage 4 chronic kidney disease, or unspecified chronic kidney disease; I48.91 Unspecified atrial fibrillation; E86.0 Dehydration; G51.0 Bell's palsy; M19.92 Post-traumatic osteoarthritis, unspecified site; C44.90 Unspecified malignant neoplasm of skin, unspecified; I25.10 Atherosclerotic heart disease of native coronary artery without angina pectoris; A08.4 Viral intestinal infection, unspecified; E78.5 Hyperlipidemia, unspecified; H54.42A3 Blindness left eye category 3, normal vision right eye; K63.5 Polyp of colon; E87.6 Hypokalemia; E83.42 Hypomagnesemia; R53.81 Other malaise; Z90.89 Acquired absence of other organs; I25.2 Old myocardial infarction; Z86.73 Personal history of transient ischemic attack (TIA), and cerebral infarction without residual deficits; Z82.49 Family history of ischemic heart disease and other diseases of the circulatory system; Z94.89 Other transplanted organ and tissue status; Z79.01 Long term (current) use of anticoagulants; Z79.899 Other long term (current) drug therapy; Z91.048 Other nonmedicinal substance allergy status; Z28.82 Immunization not carried out because of caregiver refusal

== ENCOUNTER 2019-10-09 12:56 | Inpatient (IN) | payer MEDICARE, BC ==
[~2019-10-09] VITALS: Ht 182.9 cm; Wt 81.6 kg
--- NOTE | ~2019-10-09 | EKG ---
[place] [address] ELECTROCARDIOGRAM REPORT Name: MANUELA BOWEN [facility] [id number] Admission: 10/09/19 Attend Phys: Discharge: Date of : 34 Date of Service: 10/09/19 1325 Report #: [id number] THIS REPORT FOR: cc: FAM - No family physician/PCP FAM - No family physician/PCP Annamarie De Luna MD ~ THIS REPORT FOR: //name// [facility] ED Test Date: 2019-10-09 Test Time: 13:25:41 Pat Name: MANUELA BOWEN Department: Room: Gender: M Computer Analyst Supervisor: : 1935 Requested By: Jarod Rowan Order Number: [id number] MD: Measurements Intervals [place] Rate: 115 P: [place]: QRS: -64 QRSD: 123 T: 88 QT: 368 QTc: 509 Interpretive Statements Atrial fibrillation Ventricular premature complex Left bundle branch block Compared to ECG 08/16/2019 14:20:09 Ventricular premature complex(es) now present Ectopic atrial tachycardia, unifocal no longer present [email or web address] By: 1325 1325 Epiphany Epiphany, /BRAIN
--- NOTE | ~2019-10-09 | CON ---
[address] [address] CONSULTATION Name: ANDRÉSMANUELAMARY CHOWDARY Room: [address] IN M.R.#: [id number] Admission: 10/09/19 Attend Phys: Dev Barakat MD Discharge: Date of : 34 Report #: [id number] THIS REPORT FOR: //name// cc: CHERELLE - No family physician/PCP FAM - No family physician/PCP ~ THIS REPORT FOR: //name// CC: Dev Segura DO FAM physician/PCP DICTATED BY: Ashanti Baron [facility] DATE OF SERVICE: 10/10/2019 PRIMARY CARE PHYSICIAN: Dr. Alex Segura Please note at the time of this dictation, the patient was seen and physically examined by myself. REASON FOR CONSULTATION: Diarrhea and colitis. HISTORY OF PRESENT ILLNESS: This is an 83-year-old man who presents to the Emergency Room with increasing weakness and ongoing loose stools he states that are 3-4 during the day and numerous ones at night. He denies any bright red blood or black stools at this time. However, he does have some generalized abdominal discomfort that he has noted as well. He states his appetite has been poor and just is not very hungry. The patient was here in the hospital in August for the similar finding. He underwent a colonoscopy that showed a tortuous colon. He had diverticulosis in the sigmoid colon and nonbleeding internal hemorrhoids. He had polyps that were removed as well as random colon biopsies that showed mild active colitis with suggestions of chronic inflammation. Several attempts were noted that he was at [facility] that he needed to be started on some medications, but never received a phone call back. The patient is never started on any Entocort or any prednisone at this time. ALLERGIES: BAND-AIDS. MEDICATIONS FROM HOME: Include Centrum, eye drops, Lipitor, Eliquis, flecainide, metoprolol, Xalatan, vitamin C, Cipro, metronidazole, and Tylenol. PAST MEDICAL HISTORY: Hypertension, arthritis, [place], stroke, seizures, chronic kidney disease stage 3, and atrial fibrillation. 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 FAMILY HISTORY: Noncontributory. SOCIAL HISTORY: Denies any alcohol, tobacco, or illegal drug use. The patient had been residing at [facility]. REVIEW OF SYSTEMS: A 12-point review of systems is essentially negative except what is mentioned in the HPI. PHYSICAL EXAMINATION: VITAL SIGNS: Temperature 36.6, pulse 88, respirations 18, and blood pressure 102/82. HEART: Irregular rate and rhythm. ABDOMEN: Soft. Positive bowel sounds in all 4 quadrants with some diffuse tenderness noted throughout. LUNGS: Diminished, but essentially clear. LABORATORY DATA: Hemoglobin 10.2, white count 11.8, and platelets 343. BUN is 24. GFR was 34. CT of the abdomen and pelvis showed a left hepatic lesion, fatty infiltrates, moderate wall thickening with more prominent in the cecum and proximal ascending, and a large inguinal hernia was noted. IMPRESSION: 1. Active colitis. 2. Diarrhea, worsening. 3. Abdominal pain. 4. Loss of appetite. 5. Anemia. 6. Anticoagulant therapy, atrial fibrillation, Xarelto. 7. Progressive weakness. PLAN: 1. Solu-Medrol 62.5 mg IV q. 8 hours. 2. Clostridium difficile is pending. 3. We will await and assess the patient's response to the above. 4. Further recommendations to be made with Dr. Nevarez who sees the patient later today. Thank you for allowing us to participate in this patient's care. Please do not hesitate to call with any questions in regard to this consult. By: 1007 1151Eloisa Nevarez MD /vikram
[~2019-10-09 12:56] MED LIST changes: +CIPRO500 M1 PO; +FLAGYL500 M1 PO; +METRONIDAZOLE500 M4 PO; +TYLENOL325 MG PO; +XALATAN2.5 ML OPHTHALMIC
[2019-10-09 13:01] VITALS: BP 117/68
[2019-10-09 13:43] LABS: ABSOLUTE EOSINOPHILS 0.1 thou/uL (0.0-0.7); ABSOLUTE LYMPHOCYTES 1.4 thou/uL (0.8-5.3); ABSOLUTE MONOCYTES 1.1 thou/uL (0.0-1.2); ABSOLUTE NEUTROPHILS 12.6 thou/uL (1.6-8.1); BASOPHILS 0.3 %; EOSINOPHILS 0.4 %; HEMATOCRIT 32.6 % (42.0-52.0); LYMPHOCYTES 9.1 %; MCH 28.8 pg (26.0-34.0); MCHC 33.9 g/dL (28.0-37.0); MCV 85.2 fL (80.0-100.0); MONOCYTES 7.5 %; MPV 7.4 fl. (7.2-11.1); NUCLEATED RBCS 0 /100WBC; PLATELET COUNT* 387 thou/uL (150-400); POLYS 82.7 %; RBC 3.82 mil/uL (4.50-6.00); RDW-CV 15.6 % (10.5-14.5); WBC 15.2 thou/uL (4.0-11.0)
[2019-10-09 13:53] LABS: APTT 30.8 Seconds (25.0-31.3); INR 1.2; PROTIME 12.3 Seconds (9.20-11.50)
[2019-10-09 13:58] LABS: POTASSIUM 2.9 mmol/L (3.5-5.1)
[2019-10-09 14:04] LABS: ALBUMIN 2.3 g/dL (3.4-5.0); TOTAL BILIRUBIN 0.7 mg/dL (<0.1-1.0); TOTAL PROTEIN 6.3 g/dL (6.4-8.2)
[2019-10-09 15:00] LABS: URINE BILIRUBIN NEGATIVE (Negative); URINE BLOOD NEGATIVE (Negative); URINE CLARITY CLEAR; URINE COLOR YELLOW; URINE GLUCOSE-RANDOM NEGATIVE (Negative); URINE KETONES NEGATIVE (Negative); URINE LEUKOCYTES-REFLEX NEGATIVE (Negative); URINE NITRITE-REFLEX NEGATIVE (Negative); URINE PROTEIN NEGATIVE (Negative); URINE SPECIFIC GRAVITY 1.025 (1.005-1.030); URINE UROBILINOGEN 0.2 E.U./dl (0.2-1.0)
[2019-10-09 18:45] LABS: CALCIUM 7.7 mg/dL (8.5-10.1); MAGNESIUM 1.5 mg/dL (1.8-2.4); POTASSIUM 3.1 mmol/L (3.5-5.1)
[2019-10-09 20:15] VITALS: BP 99/56
[2019-10-09 20:48] VITALS: BP 113/59
[2019-10-10 00:17] VITALS: BP 104/63
[2019-10-10 04:45] VITALS: BP 102/52
[2019-10-10 06:40] LABS: ABSOLUTE BASOPHILS 0.1 thou/uL (0.0-0.2); ABSOLUTE EOSINOPHILS 0.3 thou/uL (0.0-0.7); ABSOLUTE LYMPHOCYTES 1.9 thou/uL (0.8-5.3); ABSOLUTE MONOCYTES 1.1 thou/uL (0.0-1.2); ABSOLUTE NEUTROPHILS 8.4 thou/uL (1.6-8.1); BASOPHILS 0.6 %; EOSINOPHILS 2.4 %; HEMATOCRIT 30.5 % (42.0-52.0); HEMOGLOBIN 10.2 gm/dL (14.0-18.0); LYMPHOCYTES 16.5 %; MCH 28.5 pg (26.0-34.0); MCHC 33.5 g/dL (28.0-37.0); MCV 85.2 fL (80.0-100.0); MONOCYTES 9.2 %; MPV 7.9 fl. (7.2-11.1); NUCLEATED RBCS 0 /100WBC; PLATELET COUNT* 343 thou/uL (150-400); POLYS 71.3 %; RBC 3.58 mil/uL (4.50-6.00); RDW-CV 15.8 % (10.5-14.5); WBC 11.8 thou/uL (4.0-11.0)
[2019-10-10 07:08] LABS: CALCIUM 7.7 mg/dL (8.5-10.1); CREATININE 1.9 mg/dL (0.6-1.3); POTASSIUM 3.2 mmol/L (3.5-5.1)
[2019-10-10 08:00] VITALS: BP 118/70
--- NOTE | 2019-10-10 08:47 | NUR ---
PT ADMITTED TO ROOM 211 DURING COFFEE MAKER; VSS, A+OX4, UP WITH STANDBY, HX OF FALLS-BED ALARM ON, SPECIAL ISOLATION FOR SUSPECTED C. DIFF. INFECTION SET UP AND MAINTAINED THROUGHOUT THE SHIFT. HE IS ABLE TO COMMUNICATE HIS NEEDS TO STAFF EFFECTIVELY. CURRENT PAIN MEDICATION REGIMEN HAS BEEN ADEQUATE FOR CONTROLLING HIS PAIN UP TO THIS TIME.
--- NOTE | 2019-10-10 11:06 | NUR ---
Pt is A&O. Resides at home with his son and DIL. Pt is independent with ADLs, family completes IADLs. Pt uses a walker for mobility. Pt is current with [facility]. Hx of [facility], Pt was there from 08/23-10/04/19. CM spoke with Pt's son, son thinks that Pt will need skilled at [facility]. CM spoke with Rosa Maria at [facility], they can accept Pt back for skilled, if needed. Therapies ordered. Updated Dr. Osei.
[2019-10-10 12:00] VITALS: BP 88/46
[2019-10-10 16:00] VITALS: BP 117/57
[2019-10-10 19:50] VITALS: BP 100/60
--- NOTE | 2019-10-10 19:51 | NUR ---
PT A&O x4. VSS. BM x5 THIS SHIFT. TOLERATING DIET. GOOD URINE OUTPUT. ELECTROLYTE REPLACED PER PROTOCOL. UP WITH STB ASSIST. CONTACT PRECAUTIONS MAINTAINED.
[2019-10-11 00:37] VITALS: BP 80/47
[2019-10-11 04:00] VITALS: BP 126/74
--- NOTE | 2019-10-11 06:23 | NUR ---
ASSUMED CARE OF PATIENT AT APPROX 1930. ALERT AND ORIENTED X4. ASSESSMENT COMPLETED AND CHARTED. VSS ON ROOM AIR. COMPLAINT OF BACK PAIN AT THE BEGINNING OF SHIFT, ADDRESSED WITH TYLENOL. PATIENT ASKED FOR SOMETHING FOR SLEEP AT BEDTIME, MELATONIN GIVEN. PATIENT UP WITH ASSIST TO THE BEDSIDE COMMODE AND HAVING MULTIPLE STOOLS OVERNIGHT. ISO PRECAUTIONS IN PLACE FOR C-DIFF. ANTIBIOTICS GIVEN ORDERED. NO OTHER COMPLAINTS THIS SHIFT. FALL PRECAUTIONS IN PLACE. CALL LIGHT WITHIN REACH. HOURLY ROUNDS COMPLETED. WILL CONTINUE WITH PLAN OF CARE.
--- NOTE | 2019-10-11 12:43 | CON ---
[address] [address] CONSULTATION Name: BOWENMANUELA EPI Room: [address] M.R.#: [id number] Admission: 10/09/19 Attend Phys: Dev Barakat MD Discharge: Date of : 33 Report #: [id number] THIS REPORT FOR: //name// cc: CHERELLE Mark family physician/PCP CHERELLE Mark family physician/PCP ~ THIS REPORT FOR: //name// CC: Dev VILLARREAL physician/PCP DATE OF SERVICE: 10/10/2019 INFECTIOUS DISEASE CONSULTATION ATTENDING PHYSICIAN: Dev Barakat MD REASON FOR EVALUATION: Colitis. HISTORY OF PRESENT ILLNESS: Chart reviewed, patient examined. This is an 83-year-old gentleman with a history of some vasculopathy, previous stroke, seizures. He was admitted in August this year for evaluation of diarrhea. Evaluation was undertaken including colonoscopy. C. diff was noted to be negative. He was readmitted through the Emergency Room with progressive weakness, still having loose stools, does describe some lower abdominal cramping type pain as well, multiple stools a day. He is unaware of any blood in the stools. Denies any significant fevers or chills. Appetite has been somewhat variable. As far as the evaluation, did have a CT, which showed diffuse colitis, although interestingly it is more proximally and most prominent changes including the cecum in the right side. He just confirmed to have a positive C. diff toxin assay. He was empirically started on metronidazole as well as oral vancomycin to 250 p.o. q.i.d. Additionally, he denies significant pulmonary-related complaints. He is generally lucid. ALLERGIES: BAND-AIDS. CURRENT MEDICATIONS: Include methylprednisolone, vancomycin, pantoprazole, melatonin, metronidazole, metoprolol, flecainide, apixaban, atorvastatin, p.r.n. analgesics and antiemetics. PAST MEDICAL HISTORY: Previous stroke, myocardial infarction, history of seizures, hypertension, arthritis, renal insufficiency, atrial fibrillation, previous tonsillectomy. SOCIAL HISTORY: Former smoker. No ethanol. No illicit drug use. FAMILY HISTORY: Noncontributory. REVIEW OF SYSTEMS: Otherwise, unremarkable 10-point review of systems with exception of the above. PHYSICAL EXAMINATION: GENERAL: He appears somewhat chronically ill, undernourished, pale, is in sjiq-cu-sopbvkqy distress. VITAL SIGNS: Temperature 98, pulse 96, respirations 18, blood pressure 88/46. SKIN: Warm, dry. HEENT: Normocephalic, extraocular muscles intact. NECK: Supple. LUNGS: Few scattered coarse sounds at the bases. HEART: Irregular. I do not appreciate a murmur, is borderline tachycardic. ABDOMEN: Generally soft. There is some mild amount of tenderness. There are no peritoneal signs. GENITOURINARY AND RECTAL: Deferred. LABORATORY DATA: Confirmed in last hours. C. diff was positive. Electrolytes: Sodium 146, potassium 3.2, chloride 111, bicarbonate is 24, anion gap of 11, BUN and creatinine 24 and 1.9, estimated GFR of 34. Prealbumin of 12.6. CBC: White count of 11.8, H and H 10.2 and 30.5, platelets of 343. Troponin less than 0.06. Urinalysis unremarkable. CT abdomen and pelvis diffusely abnormal colon with moderate colonic wall thickening throughout, most prominent in the cecum and low descending colon compatible with colitis. ASSESSMENT: Clostridium difficile colitis. The patient has on and off symptoms, certainly this suggests of the above. I agree with combination therapy at this point. I will try to minimize other antibiotic exposure. Monitor expectantly. Add incentive spirometry. Certainly at risk for nosocomial related infectious complications as well. Optimize his nutritional status to extent possible. <ELECTRONICALLY SIGNED> By: Mars Cheatham MD 10/11/19 1243 [id number] Cheatham MD /vikram
[2019-10-11 12:53] VITALS: BP 149/100
[2019-10-11 15:49] VITALS: BP 116/59
[2019-10-11 20:00] VITALS: BP 121/64
[2019-10-12] VITALS: BP 93/57
[2019-10-12 04:04] VITALS: BP 98/52
--- NOTE | 2019-10-12 06:15 | NUR ---
ASSUMED CARE OF PATIENT AT APPROX 1930. ALERT AND ORIENTED X4. ASSESSMENT COMPLETED AND CHARTED. VSS ON ROOM AIR. COMPLAINT OF BACK PAIN AT BEDTIME ADDRESSED WITH TYLENOL. PATIENT ALSO REQUESTED MELATONIN FOR SLEEP BUT REMAINED AWAKE THROUGHOUT THE NIGHT. PATIENT COMPLAINED OF BEING CONSTIPATED BUT HAS BEEN NOTED TO HAVE MULTIPLE SOFT, FORMED STOOLS IN THE COMMODE. PATIENT NOW MED-SURG STATRUS AND REMOVED FROM TELE MONITOR. NO OTHER COMPLAINTS THIS SHIFT. CALL LIGHT IS WITHIN REACH. HOURLY ROUNDS COMPLETED. WILL CONTINUE WITH PLAN OF CARE.
[2019-10-12 08:00] VITALS: BP 123/73
[2019-10-12 09:27] LABS: ABSOLUTE EOSINOPHILS 0.1 thou/uL (0.0-0.7); ABSOLUTE LYMPHOCYTES 2.2 thou/uL (0.8-5.3); ABSOLUTE MONOCYTES 0.8 thou/uL (0.0-1.2); ABSOLUTE NEUTROPHILS 9.5 thou/uL (1.6-8.1); BASOPHILS 0.3 %; EOSINOPHILS 0.8 %; HEMATOCRIT 33.2 % (42.0-52.0); HEMOGLOBIN 10.8 gm/dL (14.0-18.0); LYMPHOCYTES 17.8 %; MCH 27.8 pg (26.0-34.0); MCHC 32.7 g/dL (28.0-37.0); MCV 85.3 fL (80.0-100.0); MONOCYTES 6.4 %; MPV 7.8 fl. (7.2-11.1); NUCLEATED RBCS 0 /100WBC; POLYS 74.7 %; RBC 3.89 mil/uL (4.50-6.00); RDW-CV 15.8 % (10.5-14.5); WBC 12.7 thou/uL (4.0-11.0)
[2019-10-12 09:32] LABS: PLATELET COUNT* 464 thou/uL (150-400)
[2019-10-12 09:36] LABS: CALCIUM 7.9 mg/dL (8.5-10.1); CREATININE 1.8 mg/dL (0.6-1.3); POTASSIUM 3.5 mmol/L (3.5-5.1)
[2019-10-12 10:00] VITALS: BP 123/73
[2019-10-12] MEDS ORDERED: FIRVANQ50 MG/1 ML PO (10:13)
[2019-10-12 10:45] VITALS: BP 123/73
--- NOTE | 2019-10-12 10:58 | NUR ---
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
[2019-10-12 12:00] VITALS: BP 102/65
--- NOTE | 2019-10-12 13:23 | NUR ---
WAS ASKED TO CHECK ON FIRVANQ SCRIPT FOR PT. UNABLE TO LOCATE ANY FIRVANQ IN THE AREA AT [facility] OR [facility]. WAS ABLE TO LOCATE AT [facility] BUT THEY ASKED THAT SCRIPT BE VERIFIED AND TO ASK DR IF CAPSULE WAS OK IT DIDN'T NEED PRIOR AUTH. VERIFIED SCRIPT WITH DR JI, HE STATED CAPSULE WAS FINE FOR SUBSTIUTION. CALL BACK TO [facility] AND THEY COULD FILL IT FOR PT. FAXED FACE SHEET AND SCRIPT TO [facility] TO TAKE ORIGINAL SCRIPT WITH HIM, THEY CAN FILL A PARTIAL SCRIPT FOR HIM. NURSE TO MAKE PT'S SON AWARE WHEN HE PICKS PT UP
--- NOTE | 2019-10-12 13:24 | NUR ---
ASSUMED PT CARE AT 0730. ASSESSMENT COMPLETED CHARTED. ABLE TO MAKE NEEDS KNOWN. UP WITH 1 TO BATHROOM. C/O SHOULDER PAIN AND GAVE PRN PAIN MEDICATION PER EMAR. RESTING IN BED MOST OF THE DAY. IV REMOVED. DISCHARGE APPROVED AND VANCOMYCIN FOUND AND NOTIFIED SON. WAITING FOR PT TO BE PICKED UP. WILL CONTINUE TO MONITOR.
== END 2019-10-12 13:50 | disposition home health service (06) | DRG 871 ==
LOC: M.ERS 12:56 → M.TBA-ER 15:51 → M.2W 15:51
PROVIDERS: Family Medicine; ADMIT Internal Medicine
DX: A41.9 Sepsis, unspecified organism (principal); E43 Unspecified severe protein-calorie malnutrition; A04.72 Enterocolitis due to Clostridium difficile, not specified as recurrent; N17.9 Acute kidney failure, unspecified; R65.20 Severe sepsis without septic shock; E86.0 Dehydration; E87.6 Hypokalemia; M19.90 Unspecified osteoarthritis, unspecified site; D64.9 Anemia, unspecified; I48.91 Unspecified atrial fibrillation; K57.30 Diverticulosis of large intestine without perforation or abscess without bleeding; I12.9 Hypertensive chronic kidney disease with stage 1 through stage 4 chronic kidney disease, or unspecified chronic kidney disease; N18.3 Chronic kidney disease, stage 3 (moderate); Z91.048 Other nonmedicinal substance allergy status; Z79.899 Other long term (current) drug therapy; Z94.89 Other transplanted organ and tissue status; I25.2 Old myocardial infarction; Z68.24 Body mass index [BMI] 24.0-24.9, adult; Z86.010 Personal history of colon polyps; Z87.891 Personal history of nicotine dependence; Z86.73 Personal history of transient ischemic attack (TIA), and cerebral infarction without residual deficits; Z79.01 Long term (current) use of anticoagulants

== ENCOUNTER 2020-02-07 15:52 | Emergency (ER) | payer MEDICARE, BC ==
[~2020-02-07] VITALS: Ht 172.7 cm; Wt 81.7 kg
[2020-02-07 16:22] LABS: ABSOLUTE EOSINOPHILS 0.1 thou/uL (0.0-0.7); ABSOLUTE LYMPHOCYTES 1.7 thou/uL (0.8-5.3); ABSOLUTE MONOCYTES 0.6 thou/uL (0.0-1.2); BASOPHILS 0.4 %; EOSINOPHILS 0.9 %; HEMATOCRIT 39.8 % (42.0-52.0); HEMOGLOBIN 13.9 gm/dL (14.0-18.0); LYMPHOCYTES 18.3 %; MCH 30.6 pg (26.0-34.0); MCHC 34.8 g/dL (28.0-37.0); MONOCYTES 6.6 %; MPV 7.9 fl. (7.2-11.1); NUCLEATED RBCS 0 /100WBC; PLATELET COUNT* 240 thou/uL (150-400); POLYS 73.8 %; RBC 4.52 mil/uL (4.50-6.00); RDW-CV 15.2 % (10.5-14.5); WBC 9.5 thou/uL (4.0-11.0)
[2020-02-07 16:35] LABS: CALCIUM 8.8 mg/dL (8.5-10.1); CREATININE 2.8 mg/dL (0.6-1.3); POTASSIUM 4.3 mmol/L (3.5-5.1)
[2020-02-07 16:36] LABS: APTT 28.1 Seconds (25.0-31.3); INR 1.1; PROTIME 10.9 Seconds (9.20-11.50)
[2020-02-07 16:46] LABS: ALBUMIN 3.8 g/dL (3.4-5.0); TOTAL BILIRUBIN 0.5 mg/dL (<0.1-1.0)
[2020-02-07 19:24] VITALS: BP 118/83
--- NOTE | 2020-02-08 10:31 | EKG ---
[place] [address] ELECTROCARDIOGRAM REPORT Name: MANUELA BOWEN Room: [facility]#: [id number] Admission: 02/07/20 Attend Phys: Discharge: 02/07/20 Date of : 33 Date of Service: 02/07/20 1556 Report #: [id number] THIS REPORT FOR: //name// [facility] ED Test Date: 2020-02-07 Test Time: 15:56:29 Pat Name: MANUELA BOWEN Department: Room: Gender: Contract Management Specialist: TDS : 1935 Requested By: Ethel Brooke Order Number: [id number] MD: Gopal Bishop Measurements Intervals [place] Rate: 71 P: [place]: QRS: -114 QRSD: 153 T: 87 QT: 451 QTc: 491 Interpretive Statements Atrial fibrillation septal q waves noted LAFB Lateral infarct, old Compared to ECG 10/09/2019 13:25:41 Ectopic atrial tachycardia, unifocal no longer present Ventricular premature complex(es) no longer present Electronically Signed On 02-08-2020 10:29:01 CDT by Gopal Bishop [email or web address] <ELECTRONICALLY SIGNED> By: Gopal Bishop MD, [facility] 02/08/20 1029 1556 1556 Gopal Bishop MD, [facility] /EPI
== END 2020-02-07 19:10 | disposition home or self-care (01) ==
LOC: M.ERS 15:52
PROVIDERS: Personal Emergency Response Attendant
DX: N18.3 Chronic kidney disease, stage 3 (moderate) (principal); R55 Syncope and collapse; I12.9 Hypertensive chronic kidney disease with stage 1 through stage 4 chronic kidney disease, or unspecified chronic kidney disease; I48.91 Unspecified atrial fibrillation; M19.90 Unspecified osteoarthritis, unspecified site; Z90.49 Acquired absence of other specified parts of digestive tract; Z88.8 Allergy status to other drugs, medicaments and biological substances

== ENCOUNTER → 2020-02-07 | Outpatient (CLI) | payer MEDICARE, BC ==
[~2020-02-07] MED LIST changes: +FIRVANQ50 MG/1 ML PO
[2020-02-07 15:14] LABS: HEMATOCRIT 40.8 % (42.0-52.0); HEMOGLOBIN 14.1 gm/dL (14.0-18.0)
[2020-02-07 15:32] LABS: CALCIUM 8.8 mg/dL (8.5-10.1); CREATININE 2.8 mg/dL (0.6-1.3); PHOSPHORUS* 3.6 mg/dL (2.5-4.9); TOTAL BILIRUBIN 0.5 mg/dL (<0.1-1.0); TOTAL PROTEIN 8.2 g/dL (6.4-8.2)
[2020-02-07 15:48] LABS: CREATININE 2.8 mg/dL (0.6-1.3); PHOSPHORUS* 3.9 mg/dL (2.5-4.9)
== END ==
LOC: M.LAB 14:37
PROVIDERS: Internal Medicine
DX: N18.3 Chronic kidney disease, stage 3 (moderate) (principal)

== ENCOUNTER → 2020-02-18 | Outpatient (CLI) | payer MEDICARE, BC ==
[2020-02-18 16:50] LABS: CALCIUM 8.8 mg/dL (8.5-10.1); CREATININE 2.5 mg/dL (0.6-1.3)
== END ==
LOC: M.LAB 16:17
PROVIDERS: ATTEND Internal Medicine
DX: N18.3 Chronic kidney disease, stage 3 (moderate) (principal)

== ENCOUNTER → 2020-03-14 | Outpatient (CLI) | payer MEDICARE, BC | LOC: M.ULTRA 13:00 | PROVIDERS: ATTEND Internal Medicine | DX: N28.1 Cyst of kidney, acquired (principal); N18.3 Chronic kidney disease, stage 3 (moderate) ==

== ENCOUNTER 2020-03-28 13:47 | Observation (INO) | payer MEDICARE, BC ==
[~2020-03-28] VITALS: Ht 182.9 cm; Wt 76.0 kg
[~2020-03-28 13:47] MED LIST changes: -CENTRUM SILVER1 EAC4 PO
[2020-03-28 14:00] VITALS: BP 117/47
[2020-03-28 14:44] LABS: ABSOLUTE BASOPHILS 0.1 thou/uL (0.0-0.2); ABSOLUTE EOSINOPHILS 0.2 thou/uL (0.0-0.7); ABSOLUTE LYMPHOCYTES 1.6 thou/uL (0.8-5.3); ABSOLUTE MONOCYTES 0.7 thou/uL (0.0-1.2); ABSOLUTE NEUTROPHILS 4.3 thou/uL (1.6-8.1); BASOPHILS 0.9 %; HEMATOCRIT 32.9 % (42.0-52.0); HEMOGLOBIN 11.7 gm/dL (14.0-18.0); LYMPHOCYTES 23.8 %; MCH 31.8 pg (26.0-34.0); MCHC 35.5 g/dL (28.0-37.0); MCV 89.6 fL (80.0-100.0); MONOCYTES 10.3 %; MPV 7.5 fl. (7.2-11.1); NUCLEATED RBCS 0 /100WBC; PLATELET COUNT* 235 thou/uL (150-400); RBC 3.67 mil/uL (4.50-6.00); RDW-CV 13.6 % (10.5-14.5); WBC 6.9 thou/uL (4.0-11.0)
[2020-03-28 14:46] LABS: URINE BILIRUBIN NEGATIVE (Negative); URINE BLOOD NEGATIVE (Negative); URINE CLARITY CLEAR; URINE COLOR YELLOW; URINE GLUCOSE-RANDOM NEGATIVE (Negative); URINE KETONES NEGATIVE (Negative); URINE LEUKOCYTES-REFLEX NEGATIVE (Negative); URINE NITRITE-REFLEX NEGATIVE (Negative); URINE PROTEIN NEGATIVE (Negative); URINE SPECIFIC GRAVITY 1.025 (1.005-1.030); URINE UROBILINOGEN 0.2 E.U./dl (0.2-1.0)
[2020-03-28 14:55] LABS: CALCIUM 8.4 mg/dL (8.5-10.1); CREATININE 2.7 mg/dL (0.6-1.3); POTASSIUM 3.7 mmol/L (3.5-5.1)
[2020-03-28 15:00] LABS: ALBUMIN 3.5 g/dL (3.4-5.0); TOTAL BILIRUBIN 0.4 mg/dL (<0.1-1.0); TOTAL PROTEIN 6.9 g/dL (6.4-8.2)
--- NOTE | 2020-03-28 20:29 | NUR ---
REPORT GIVEN TO MICHELLE HILL. PT BEING ADMITED TO TELEMETRY FLOOR.
[2020-03-28 21:00] VITALS: BP 109/45
[2020-03-29] VITALS (7 sets, daily range): BP systolic 96–133; BP diastolic 40–73
[2020-03-29 05:16] LABS: HEMATOCRIT 31.6 % (42.0-52.0); HEMOGLOBIN 11.2 gm/dL (14.0-18.0); MCH 32.1 pg (26.0-34.0); MCHC 35.5 g/dL (28.0-37.0); MCV 90.3 fL (80.0-100.0); MPV 8.2 fl. (7.2-11.1); RBC 3.5 mil/uL (4.50-6.00); RDW-CV 13.6 % (10.5-14.5); WBC 6.6 thou/uL (4.0-11.0)
[2020-03-29 05:20] LABS: ALBUMIN 3.1 g/dL (3.4-5.0); CALCIUM 8.1 mg/dL (8.5-10.1); CREATININE 2.2 mg/dL (0.6-1.3); MAGNESIUM 1.9 mg/dL (1.8-2.4); TOTAL BILIRUBIN 0.5 mg/dL (<0.1-1.0); TOTAL PROTEIN 5.9 g/dL (6.4-8.2)
--- NOTE | 2020-03-29 06:13 | NUR ---
REPORT RECIEVED FROM ER. PT ORIENTED TO ROOM, CALL LIGHT SHOWN, FALL AGREEMENT WENT OVER, PT STATED UNDERSTANDING. ADMISSION DOCUMENTED. MEDS GIVEN PER E-MAR. NO REPORTS OF PAIN. FALL PRECAUTIONS IN PLACE. WILL CONTINUE WITH PLAN OF CARE.
--- NOTE | 2020-03-29 07:25 | NUR ---
CHANGE OF SHIFT, BEDSIDE REPORT GIVEN PATIENT SEEN AT BEDSIDE IN BED ASLEEP ASSUMED PATIENT CARE
--- NOTE | 2020-03-29 11:23 | EKG ---
[place] [address] ELECTROCARDIOGRAM REPORT Name: MANUELA BOWEN Room: [address] M.R.#: [id number] Admission: 03/28/20 Attend Phys: Ila Curtis Discharge: Date of : 33 Date of Service: 03/28/20 1432 Report #: [id number] THIS REPORT FOR: //name// [facility] ED Test Date: 2020-03-28 Test Time: 14:32:19 Pat Name: MANUELA BOWEN Department: Room: [facility] Gender: M Psychology Tech: : 1935 Requested By: Chente Burkett Order Number: [id number] MD: Sriram Allen Measurements Intervals [place] Rate: 82 P: [place]: QRS: -60 QRSD: 146 T: 85 QT: 408 QTc: 477 Interpretive Statements Atrial flutter with variabale block Left bundle branch block Compared to ECG 02/07/2020 15:56:29 atrial flutter is noted Atrial fibrillation no longer present Q waves no longer present Electronically Signed On 03-29-2020 11:22:46 CDT by Sriram Allen [email or web address] <ELECTRONICALLY SIGNED> By: Sriram Allen MD, FAC 03/29/20 1122 1432 1432 Sriram Allen MD, FAC /EPI
[2020-03-30] VITALS: BP 109/54
[2020-03-30 04:00] VITALS: BP 110/79
[2020-03-30 04:54] LABS: CALCIUM 8.2 mg/dL (8.5-10.1); POTASSIUM 4.1 mmol/L (3.5-5.1)
--- NOTE | 2020-03-30 07:40 | NUR ---
PT SLEPT MOST OF SHIFT. ASSESSMENT DOCUMENTED. MEDS GIVEN PER E-NOV. IV PATENT. NO REPORTS OF PAIN. FALL PRECAUTIONS IN PLACE. WILL CONTINUE WITH PLAN OF CARE.
[2020-03-30 08:40] VITALS: BP 119/81
--- NOTE | 2020-03-30 10:31 | CON ---
[address] [address] CONSULTATION Name: MANUELA BOWEN Room: [address] Félix Harvey#: [id number] Admission: 03/28/20 Attend Phys: Alma Bond Discharge: Date of : 33 Report #: [id number] THIS REPORT FOR: //name// cc: CHERELLE Mark family physician/PCP CHERELLE Mark family physician/PCP ~ THIS REPORT FOR: //name// CC: CHERELLE physician/PCP Ila Curtis DATE OF SERVICE: 03/29/2020 REQUESTING PHYSICIAN: Dr. Shagufta Curtis. REASON FOR CONSULTATION: Acute kidney injury. HISTORY OF PRESENT ILLNESS: The patient is an 84-year-old gentleman admitted to the hospital for acute on chronic kidney disease. He has been followed by my partner, Dr. Valencia, patient has baseline creatinine around 2. He was admitted for volume depletion and creatinine went up to 3.2. Given fluids and creatinine today already down to 2.2, this is his baseline. The patient is a very poor historian, so review of systems us not reliable. MEDICAL HISTORY: 1. Chronic kidney disease stage 4, baseline creatinine around 2. 2. History of hypertension. 3. History of coronary artery disease. 4. History of strokes. 5. History of right eye transplant. 6. Degenerative joint disease. 7. Chronic atrial fibrillation. FAMILY HISTORY: Noncontributory. SOCIAL HISTORY: Currently, does not smoke, does not drink, but used to smoke cigarettes in the past. PHYSICAL EXAMINATION: GENERAL: Awake, alert. VITAL SIGNS: Blood pressure is 104/72, heart rate is 66, afebrile. HEENT: Pupils are round. NECK: Supple. LUNGS: Clear. CARDIOVASCULAR: Irregular rate. ABDOMEN: Soft. [address] [address] CONSULTATION Name: MANUELA BOWEN Room: [address] Candice#: [id number] Admission: 03/28/20 Attend Phys: Alma Bond Discharge: Date of : 33 Report #: [id number] LOWER EXTREMITIES: No edema. ASSESSMENT: 1. Acute kidney injury due to volume depletion, resolving. 2. Chronic kidney disease stage 4. 3. History of hypertension. He is actually hypotensive now. 4. Chronic atrial fibrillation. PLAN: 1. Gentle hydration. 2. No FLOWER inhibitors or angiotensin receptor blockers and no diuretics. 3. Labs in a.m. 4. Hopefully, he can go home soon. <ELECTRONICALLY SIGNED> By: Preet Sow MD 03/30/20 1031 1014 2026Acourtney Sow MD /nt
[2020-03-30 13:54] VITALS: BP 119/81
[2020-03-30] MEDS ORDERED: CENTRUM SILVER1 EAC4 PO (13:54)
--- NOTE | 2020-03-30 14:20 | NUR ---
PATIENT DISCHARGED TO HOME. DISCHARGE PAERS REVIEWED AND SIGNED. NO PRESCRIPTIONS. IV REMOVED. PATIENT DENIES ANY FURTHER NEEDS. PATIENT TAKEN BY WHEELCHAIR TO EXIT. LEFT WITH DAUGHTER.
== END 2020-03-30 14:22 | disposition home or self-care (01) ==
LOC: M.ERS 13:47 → M.2W 15:52 → M.TBA-ER 15:52 → M.2W 20:43
PROVIDERS: Internal Medicine Nephrology; Physician Assistant; ADMIT Internal Medicine; ATTEND Internal Medicine
DX: N17.9 Acute kidney failure, unspecified (principal); I12.9 Hypertensive chronic kidney disease with stage 1 through stage 4 chronic kidney disease, or unspecified chronic kidney disease; N18.4 Chronic kidney disease, stage 4 (severe); M19.90 Unspecified osteoarthritis, unspecified site; Z86.73 Personal history of transient ischemic attack (TIA), and cerebral infarction without residual deficits; I25.2 Old myocardial infarction; Z87.891 Personal history of nicotine dependence; I95.9 Hypotension, unspecified; E86.1 Hypovolemia; E86.9 Volume depletion, unspecified; E78.5 Hyperlipidemia, unspecified; I48.20 Chronic atrial fibrillation, unspecified

== ENCOUNTER → 2020-06-24 | Outpatient (CLI) | payer MEDICARE, BC ==
[~2020-06-24] MED LIST changes: +CENTRUM SILVER1 EAC4 PO
[2020-06-24 12:46] LABS: ICTOTEST (BILI CONFIRMATORY) Negative (Negative); URINE BILIRUBIN 1+ (Negative); URINE BLOOD NEGATIVE (Negative); URINE CLARITY CLEAR; URINE COLOR YELLOW; URINE GLUCOSE-RANDOM NEGATIVE (Negative); URINE KETONES NEGATIVE (Negative); URINE LEUKOCYTES-REFLEX NEGATIVE (Negative); URINE NITRITE-REFLEX NEGATIVE (Negative); URINE PROTEIN TRACE (Negative); URINE SPECIFIC GRAVITY >= 1.030 (1.005-1.030); URINE UROBILINOGEN 0.2 E.U./dl (0.2-1.0)
[2020-06-24 12:53] LABS: CALCIUM 8.5 mg/dL (8.5-10.1); MAGNESIUM 1.7 mg/dL (1.8-2.4); PHOSPHORUS* 3.1 mg/dL (2.5-4.9); POTASSIUM 3.9 mmol/L (3.5-5.1)
[2020-06-24 12:59] LABS: ABSOLUTE EOSINOPHILS 0.2 thou/uL (0.0-0.7); ABSOLUTE LYMPHOCYTES 1.5 thou/uL (0.8-5.3); ABSOLUTE MONOCYTES 0.5 thou/uL (0.0-1.2); ABSOLUTE NEUTROPHILS 5.7 thou/uL (1.6-8.1); BASOPHILS 0.5 %; CALCIUM 8.5 mg/dL (8.5-10.1); CREATININE 1.9 mg/dL (0.6-1.3); EOSINOPHILS 2.5 %; HEMATOCRIT 41.5 % (42.0-52.0); HEMOGLOBIN 13.8 gm/dL (14.0-18.0); LYMPHOCYTES 19.3 %; MCH 29.9 pg (26.0-34.0); MCHC 33.2 g/dL (28.0-37.0); MCV 89.9 fL (80.0-100.0); MONOCYTES 6.4 %; MPV 8.4 fl. (7.2-11.1); NUCLEATED RBCS 0 /100WBC; PHOSPHORUS* 3.2 mg/dL (2.5-4.9); PLATELET COUNT* 222 thou/uL (150-400); POLYS 71.3 %; RBC 4.62 mil/uL (4.50-6.00); RDW-CV 14.7 % (10.5-14.5)
== END ==
LOC: M.LAB 12:01
PROVIDERS: ATTEND Internal Medicine
DX: N18.30 Chronic kidney disease, stage 3 unspecified (principal)